=== PATIENT | female | born 1945 | race Caucasian/White ===

== ENCOUNTER 2023-06-06 15:19 | Observation (INO) ==
[2023-06-05 14:12] LABS: Mean Corpuscular Hemoglobin 30.6 pg (27-33); Mean Corpuscular Hgb Conc 34.2 g/dL (31-36); Mean Corpuscular Volume 89.4 fL (80-97); Mean Platelet Volume 7.7 fL (7.5-11.2); Platelet Count 273 10^3/uL (150-450); Red Blood Count 4.25 10^6/uL (3.63-4.92); Red Cell Distribution Width 13.5 % (12-17); White Blood Count 6.4 10^3/uL (3.8-11.8)
[2023-06-05 15:49] LABS: Calcium 9.7 mg/dL (8.6-10.3); Creatinine, Serum 0.87 mg/dL (0.51-0.95); Potassium 3.8 mmol/L (3.5-5.0); eGFR CKD-EPI 69.4 (>60)
[2023-06-06] MEDS ORDERED: ceFAZolin 2 GM in NS PREMIX 2 GM/100 ML BAG IVPB ONE (15:40)
[2023-06-06] MEDS ORDERED: Buffered Lidocaine 1% SYRIN 1 ml ONE (15:58)
[2023-06-06] MEDS ORDERED: Propofol 10 MG/ML 20 ML BTL ONE (16:49)
[2023-06-06] MEDS ORDERED: fentaNYL 100 mcg/2 ml 50 MCG/ML VIAL ONE ×4 (16:49→20:47)
[2023-06-06] MEDS ORDERED: Midazolam 2 mg/2 ml VIAL 1 mg/ml 2 ml VIAL (2 mg) ONE (16:49)
[2023-06-06] MEDS ORDERED: Rocuronium 50 mg VIAL 10 mg/ml 5 ml VIAL (50 mg) ONE (16:49)
[2023-06-06] MEDS ORDERED: Lidocaine 2% PF 5 ML VIAL ONE (16:49)
[2023-06-06] MEDS ORDERED: Ondansetron 4 mg VIAL 2 MG/ML 2 ml VIAL ONE (17:44)
[2023-06-06] MEDS ORDERED: Dexamethasone IV 4 MG/ML VIAL 1 ml VIAL ONE (17:44)
[2023-06-06] MEDS ORDERED: Phenylephrine 40 mcg/mL 10mL (400mcg) SYRINGE ONE (17:45)
[2023-06-06] MEDS ORDERED: Acetaminophen IV 1 GM/100ML 1,000 MG/100 ML BAG IV ONE (17:50)
[2023-06-06] MEDS ORDERED: Naloxone 0.4 mg VIAL 0.4 mg/ml 1 ml VIAL IV PRN (19:23)
[2023-06-06] MEDS ORDERED: Ondansetron 4 mg VIAL 2 MG/ML 2 ml VIAL IV PRN ×2 (19:23→22:59)
[2023-06-06] MEDS ORDERED: Bupivacaine 0.5% SDV PF 30ML VIAL ONE (19:30)
[2023-06-06] MEDS: fentaNYL 100 mcg/2 ml 50 MCG/ML VIAL IV PRN (20:20)
[2023-06-06] MEDS ORDERED: fentaNYL 100 mcg/2 ml 50 MCG/ML VIAL IV PRN (21:44)
[2023-06-06] MEDS ORDERED: Magnesium Hydroxide LIQ 30 ML UDC PO PRN (22:59)
[2023-06-06] MEDS ORDERED: Morphine 2 MG/ML SYRINGE IV PRN (22:59)
[2023-06-06] MEDS ORDERED: Ondansetron ODT 4 mg TAB 4 MG TAB PO PRN (22:59)
[2023-06-06] MEDS ORDERED: Lactulose 30 ml UDC PO PRN (22:59)
[2023-06-07] MEDS: Lactated Ringers 1000 ml BAG 1,000 ML IV SCH (00:40)
[2023-06-07] MEDS: ceFAZolin 1 GM ADVAN 1 GM in NS 0.9% 50 ML 50 ML IVPB SCH (02:41)
[2023-06-07 06:28] LABS: Hemoglobin 10.9 g/dL (11.5-14.3); Mean Platelet Volume 8.1 fL (7.5-11.2); Platelet Count 215 10^3/uL (150-450)
[2023-06-07 06:48] LABS: Calcium 8.6 mg/dL (8.6-10.3); Creatinine, Serum 0.92 mg/dL (0.51-0.95); Potassium 4.4 mmol/L (3.5-5.0); eGFR CKD-EPI 64.9 (>60)
[2023-06-07] MEDS: Vitamin THERAPEUTIC TAB PO SCH (09:27)
[2023-06-07] MEDS: Magnesium Hydroxide LIQ 30 ML UDC PO SCH (09:28)
== END 2023-06-07 12:30 | disposition home or self-care (01) ==
LOC: OR 15:19 → SSU 15:19
PROVIDERS: ADMIT Orthopaedic Surgery; ATTEND Orthopaedic Surgery